=== PATIENT | female | born 1995 | race Caucasian/White ===

== ENCOUNTER 2017-08-15 02:50 | Emergency (ER) | payer MEDICARE, OTHER ==
[2017-08-15] MEDS: IBUPROFEN 600 MG TABLET. PO (04:14)
[2017-08-15] MEDS ORDERED: IBUPROFEN 600 MG TABLET. PO (04:15)
== END 2017-08-15 04:20 | disposition home or self-care (01) ==
LOC: ER 02:50
DX: S62.306A Unspecified fracture of fifth metacarpal bone, right hand, initial encounter for closed fracture (principal); M19.90 Unspecified osteoarthritis, unspecified site; J45.909 Unspecified asthma, uncomplicated; H91.92 Unspecified hearing loss, left ear; Z88.2 Allergy status to sulfonamides; Z91.040 Latex allergy status; Z91.048 Other nonmedicinal substance allergy status; W22.8XXA Striking against or struck by other objects, initial encounter; Y93.89 Activity, other specified; Y92.89 Other specified places as the place of occurrence of the external cause; Y99.8 Other external cause status
CPT/HCPCS: 29125; 73130; 99284-25

== ENCOUNTER 2019-07-29 18:26 | Emergency (ER) | payer MEDICAID, MEDICARE ==
[~2019-07-29] VITALS: Ht 175.3 cm; Wt 56.8 kg
[~2019-07-29 18:26] MED LIST: DOCU-109 PO; IBUP-1060 PO; OXYC1TAB19 PO
[2019-07-29 18:51] LABS: BILIRUBIN,URINE NEGATIVE (NEG); CLARITY,URINE CLEAR; COLOR,URINE YELLOW; NITRITE,URINE NEGATIVE (NEG); PH,URINE 6.5; PROTEIN,URINE 30 mg/dL (NEG-TRACE); UROBILINOGEN,URINE 0.2 mg/dL (0.2 mg/dL)
[2019-07-29 18:57] LABS: SQUAMOUS EPITHELIAL CELL,UR FEW /LPF
[2019-07-29 18:58] LABS: AMORPHOUS SEDIMENT,UR PRESENT /HPF; BACTERIA,URINE FEW /HPF (0-FEW); WBC,URINE 20-40 /HPF (0-4)
[2019-07-29 18:59] LABS: TRICHOMONAS,URINE PRESENT
[2019-07-29 19:00] VITALS: BP 122/56
--- NOTE | 2019-07-29 19:40 | PHYS DOC ---
Past Medical History Past Medical History: Arthritis, Asthma, Other Additional Past Medical Histor: cervical dystonia, deaf in L ear, tourettes Past Surgical History: Other Additional Past Surgical Histo: ASD repair, R foot sx Smoking Status: Current Every Day Smoker Alcohol Use: None Drug Use: None Adult General Chief Complaint Chief Complaint: HEMORRHOIDS [facility] HPI 23-year-old female presents to the emergency Department complaints of hemorrhoids. Patient describes itching, blood in her stool at times, burning to her rectum. She is 9 weeks based on LMP. She denies any abdominal pain vaginal bleeding or discharge. She does complain of some dysuria. She has underlying history of seizure disorder. She does not take medications [id number], states medications however don't work for her. Nothing makes her symptoms worse, nothing makes better. Review of Systems Review of Systems Constitutional: Denies fever or chills [] Respiratory: Denies cough or shortness of breath [] Cardiovascular: No additional information not addressed in HPI [] GI: Denies abdominal pain, nausea, vomiting, + blood in stool, burning/itching [] : Denies dysuria or hematuria [] Musculoskeletal: Denies back pain or joint pain [] Integument: Denies rash or skin lesions [] Neurologic: Denies headache, focal weakness or sensory changes [] All other systems were reviewed and found to be within normal limits, except as documented in this note. Allergies Allergies Allergies Coded Allergies Type Severity Reaction Last Updated Verified adhesive Allergy Intermediate Rash 08/29/15 Yes latex Allergy Intermediate Swelling 08/29/15 Yes Sulfa (Sulfonamide Antibiotics) Allergy Mild Nausea and Vomiting 08/29/15 Yes Physical Exam Physical Exam Constitutional: Well developed, well nourished, no acute distress, non-toxic appearance. [] Cardiovascular:Heart rate regular rhythm, no murmur [] Lungs & Thorax: Bilateral breath sounds clear to auscultation [] Abdomen: Bowel sounds normal, soft, no tenderness, no masses, no pulsatile masses. [] Skin: Warm, dry, no erythema, no rash. [] Back: No tenderness, no CVA tenderness. [] Extremities: No tenderness, no edema. [] Neurologic: Alert and oriented X 3, no focal deficits noted. [] Psychologic: Affect normal, judgement normal, mood normal. [] Rectal exam: negative for acute blood, internal hemorrhoids likely, no obvious external hemorrhoid appreciated, no rectal tear/fissure appreciated Current Patient Data Vital Signs Vital Signs Date Time Temp Pulse Resp B/P (MAP) Pulse Ox O2 Delivery O2 Flow Rate FiO2 07/29/19 19:00 98.2 76 20 122/56 (78) 100 Room Air 98.2 Lab Values Laboratory Tests Test 07/29/19 18:39 07/29/19 18:45 POC Urine HCG, Qualitative Hcg positive (Negative) Urine Collection Type Unknown Urine Color Yellow Urine Clarity Clear Urine pH 6.5 Urine Specific [place] 1.025 Urine Protein 30 mg/dL (NEG-TRACE) Urine Glucose (UA) Negative mg/dL (NEG) Urine Ketones (Stick) Negative mg/dL (NEG) Urine Blood Trace (NEG) Urine Nitrite Negative (NEG) Urine Bilirubin Negative (NEG) Urine Urobilinogen Dipstick 0.2 mg/dL (0.2 mg/dL) Urine Leukocyte Esterase Moderate (NEG) Urine RBC 6-10 /HPF (0-2) Urine WBC 20-40 /HPF (0-4) Urine Squamous Epithelial Cells Few /LPF Urine Amorphous Sediment Present /HPF Urine Bacteria Few /HPF (0-FEW) Urine Mucus Mod /LPF Urine Trichomonas Present EKG EKG [] Radiology/Procedures Radiology/Procedures [] Course & Med Decision Making Course & Med Decision Making Pertinent Labs and Imaging studies reviewed. (See chart for details) []23-year-old female presents to the emergency Department complaints of hemorrhoids. Patient describes itching, blood in her stool at times, burning to her rectum. She is 9 weeks based on LMP. She denies any abdominal pain vaginal bleeding or discharge. She does complain of some dysuria. She has underlying history of seizure disorder. She does not take medications [id number], states medications however don't work for her. Nothing makes her symptoms worse, nothing makes better. + UTI Negative rectal exam for external hemorrhoids Anusol rx provided Abx provided for UTI Recommend follow up with PCP Misty Disclaimer Misty Disclaimer This electronic medical record was generated, in whole or in part, using a voice recognition dictation system. Departure Departure Impression: Primary Impression: Internal hemorrhoid Additional Impressions: UTI (urinary tract infection) Disposition: HOME, SELF-CARE Condition: STABLE Referrals: NO PCP (PCP) Patient Instructions: Hemorrhoids, [id number], Urinary Tract Infection, [id number] Additional Instructions: Labs reveal + HCG (), UTI Keflex rx provided for UTI Anusol ME provided for internal hemorrhoids Recommend follow up with [facility] Cephalexin (KEFLEX) 500 Mg Capsule 2 CAP PO Q12HR for 5 Days, #20 CAP Prov: PARAM ESPINO MD 07/29/19 Hydrocortisone Acetate (ANUSOL-HC) 25 Mg Supp.rect 1 SUPP RC BID for 14 Days, #28 SUPP 0 Refills Prov: PARAM ESPINO MD 07/29/19 Problem Qualifiers Additional Impressions: UTI (urinary tract infection) Urinary tract infection type: site unspecified Hematuria presence: without hematuria Qualified Codes: N39.0 - Urinary tract infection, site not specified Weeks of gestation: 9 weeks Qualified Codes: Z3A.09 - 9 weeks gestation of PARAM ESPINO MD Jul 29, 2019 19:40
[2019-07-29] MEDS ORDERED: HYDR25SU18 RC (19:46)
[2019-07-29] MEDS ORDERED: CEPH-264 PO (19:46)
== END 2019-07-29 19:52 | disposition home or self-care (01) ==
LOC: ER 18:26
DX: O22.41 Hemorrhoids in pregnancy, first trimester (principal); O23.41 Unspecified infection of urinary tract in pregnancy, first trimester; Z3A.09 9 weeks gestation of pregnancy; O21.9 Vomiting of pregnancy, unspecified; O99.511 Diseases of the respiratory system complicating pregnancy, first trimester; J45.909 Unspecified asthma, uncomplicated; O99.331 Smoking (tobacco) complicating pregnancy, first trimester; Z88.2 Allergy status to sulfonamides; Z91.040 Latex allergy status; Z88.8 Allergy status to other drugs, medicaments and biological substances
CPT/HCPCS: 81001; 81025; 87086; 99281; 99283